=== PATIENT | female | born 1965 | race Hispanic/Latino ===

== ENCOUNTER → 2022-03-04 | Day surgery (SDC) | payer OTHER ==
[~2022-03-04] MED LIST: ASPIRIN81 MG PO; CRESTOR5 MG PO; FENTANYL CITRATE/PF 100MCG/2 ML INJ ONE; HYGROTON25 MG PO; LIDOCAINE HCL 2% LOCAL INJ 5 ML SDV VIAL INJ ONE; LOSARTAN POTASS25 MG PO; MIDAZOLAM HCL 2 MG/2 ML VIAL ONE; PLAQUENIL200 MG PO; PROPOFOL IV EMULSION 10 MG/ML 20 ML VIAL ONE
[2022-03-04 08:40] VITALS: BP 119/70
== END | disposition home or self-care (01) ==
LOC: ENDO 05:51
PROVIDERS: ATTEND Internal Medicine Gastroenterology
DX: K20.90 Esophagitis, unspecified without bleeding (principal); K29.70 Gastritis, unspecified, without bleeding; K21.9 Gastro-esophageal reflux disease without esophagitis; R00.1 Bradycardia, unspecified; I10 Essential (primary) hypertension; E78.5 Hyperlipidemia, unspecified; F41.9 Anxiety disorder, unspecified; Z01.810 Encounter for preprocedural cardiovascular examination; Z01.812 Encounter for preprocedural laboratory examination; Z20.822 Contact with and (suspected) exposure to COVID-19; Z79.82 Long term (current) use of aspirin; Z79.899 Other long term (current) drug therapy
CPT/HCPCS: 43239; 43450; 93005; C9113; J2001; J2250; J2704; J3010; U0002